=== PATIENT | male | born 1965 | race African-American/Black ===

== ENCOUNTER 2017-07-10 14:51 | Inpatient (IN) ==
[2017-07-10 16:00] LABS: Basophils # 0.1 10*3/uL (0.0-0.2); Basophils % 0.6 % (0.0-0.8); Eosinophils # 0.3 10*3/uL (0.0-0.87); Eosinophils % 2.5 % (0.00-10.9); Hematocrit 32.7 VOL% (42.0-52.0); Hemoglobin 11.7 GM/DL (14.0-18.0); Immature Granulocytes % 0.2 %; Immature Granulocytes Absolute 0.02 #; Lymphocytes # 4.7 10*3/uL (1.4-4.0); Lymphocytes % 45.3 % (21.2-54.2); Mean Corpuscular HGB Conc 35.8 GM/DL (32-36); Mean Corpuscular Hemoglobin 31 PG (27-34); Mean Platelet Volume 11.6 FL (9.6-12.0); Monocytes # 0.8 10*3/uL (0.11-0.8); Monocytes % 7.7 % (1.7-12.7); Neutrophils # 4.5 10*3/uL (1.4-7.4); Neutrophils % 43.7 % (38.7-73.9); Platelet Count 179 T/CUMM (130-400); Red Blood Count 3.76 MC/CUMM (3.8-5.5); White Blood Count 10.4 T/CUMM (4-12)
[2017-07-10 16:07] LABS: Apearance,Urine CLEAR (Clear); Bilirubin,Urine Negative (Negative); Blood, Urine Negative (Negative); Glucose,Urine (UA) Negative (Negative); Ketones,Urine Negative (Negative); Mucus,Urine Occasional /LPF (Occasional); Nitrite,Urine Negative (Negative); Protein,Urine Negative; RBC,Urine 1 /HPF (0-4); Urine Color Yellow (Yellow); Urine Specific Gravity 1.015 (1.001-1.035); Urine Urobilinogen < 2.0 EU/DL (0.2-1.0); WBC,Urine <1 /HPF (0-6)
[2017-07-10 16:10] LABS: Barbiturates Screen,Urine Negative (Negative); Benzodiazepines Screen,Urine Negative (Negative); Cannabinoid Screen,Urine Negative (Negative); Opiate Screen,Urine Positive (Negative); Phencyclidine Screen,Urine Negative (Negative)
[2017-07-10 16:17] LABS: Calcium 8.7 MG/DL (8.5-10.1); Osmolality,Calculated 274.5 MOS/KG (273-304); Potassium 3.6 MMOL/L (3.5-5.1)
[2017-07-10] MEDS ORDERED: ASPIRIN 325 MG TABLET PO STA (17:21)
[2017-07-10] MEDS ORDERED: NICOTINE 21 MG/24 HR PATCH TRANSDERM STA (17:21)
[2017-07-10] MEDS ORDERED: ASPIRIN 325 MG TABLET ONE (17:39)
[2017-07-10] MEDS ORDERED: LISINOPRIL 10 MG TABLET PO STA (19:31)
[2017-07-10] MEDS ORDERED: LISINOPRIL 10 MG TABLET ONE (19:33)
[2017-07-10] MEDS ORDERED: ONDANSETRON 4 MG/2 ML VIAL IV PRN (21:25)
[2017-07-10] MEDS: CARVEDILOL 6.25 MG TABLET PO SCH (23:43)
[2017-07-11 08:10] LABS: Risk Ratio 5.43; VLDL CHOLESTEROL 35.2 MG/DL
[2017-07-11] MEDS ORDERED: NITROGLYCERIN SL 0.4 MG TABLET SL PRN (08:45)
[2017-07-11] MEDS ORDERED: LISINOPRIL 20 MG TABLET PO SCH (09:00)
[2017-07-11] MEDS ORDERED: PANTOPRAZOLE 40 MG TABLET PO SCH (09:00)
[2017-07-11] MEDS ORDERED: ZALEPLON 5 MG CAPSULE PO PRN (09:01)
[2017-07-11] MEDS ORDERED: BISACODYL 5 MG TABLET PO PRN (09:01)
[2017-07-11] MEDS ORDERED: MAGNESIUM SULF RIDER 2 GM in PREMIX 1 EACH IV PRN ×2 (09:01→09:03)
[2017-07-11] MEDS ORDERED: ACETAMINOPHEN 325 MG TABLET PO PRN (09:01)
[2017-07-11] MEDS ORDERED: MAGNESIUM SULF RIDER 4 GM in PREMIX 1 EACH IV PRN (09:01)
[2017-07-11] MEDS ORDERED: diphenhydrAMINE CAP 25 MG CAPSULE PO ONE (09:03)
[2017-07-11] MEDS ORDERED: DIAZEPAM 5 MG TABLET PO ONE (09:03)
[2017-07-11] MEDS ORDERED: POTASSIUM CHLORIDE RIDER 10 MEQ in PREMIX 1 EACH IV PRN (09:03)
[2017-07-11] MEDS ORDERED: ENOXAPARIN 40 MG/0.4 ML SYRINGE SUBCUT SCH (09:30)
[2017-07-11] MEDS: ASPIRIN EC 81 MG TABLET PO SCH (09:31)
[2017-07-11] MEDS: PANTOPRAZOLE 40 MG TABLET PO SCH (09:31)
[2017-07-11] MEDS: CARVEDILOL 6.25 MG TABLET PO SCH ×2 (09:31→21:22)
[2017-07-11 10:01] LABS: PT Patient Result 10.8 SECS; Partial Thromboplastin Time 28.5 SECS (0-40)
[2017-07-11] MEDS: SODIUM CHLORIDE 0.9% 1,000 ML IV SCH ×2 (14:13→23:49)
[2017-07-11] MEDS ORDERED: LIDOCAINE 1% 20 ML VIAL ONE (14:17)
[2017-07-11] MEDS ORDERED: MIDAZOLAM 2 MG/2 ML VIAL ONE ×2 (14:21→14:36)
[2017-07-11] MEDS ORDERED: fentaNYL 100 MCG/2 ML VIAL ONE (14:21)
[2017-07-11] MEDS ORDERED: VERAPAMIL 5 MG/2 ML VIAL ONE (14:30)
[2017-07-11] MEDS ORDERED: NITROGLYCERIN DRIP 50 MG/250 ML BOTTLE IV ONE (14:30)
[2017-07-11] MEDS ORDERED: cloNIDine 0.1 MG TABLET PO PRN (15:06)
[2017-07-11] MEDS ORDERED: ATORVASTATIN 40 MG TABLET PO SCH (21:00)
[2017-07-12] MEDS: SODIUM CHLORIDE 0.9% 1,000 ML IV SCH (02:21)
[2017-07-12 06:17] LABS: Basophils % 0.5 % (0.0-0.8); Eosinophils # 0.2 10*3/uL (0.0-0.87); Eosinophils % 2.5 % (0.00-10.9); Hematocrit 35.3 VOL% (42.0-52.0); Hemoglobin 12.7 GM/DL (14.0-18.0); Immature Granulocytes % 0.7 %; Immature Granulocytes Absolute 0.06 #; Lymphocytes # 3.5 10*3/uL (1.4-4.0); Lymphocytes % 41.3 % (21.2-54.2); Mean Corpuscular Hemoglobin 31 PG (27-34); Mean Corpuscular Volume 84.9 FL (87-102); Mean Platelet Volume 11.9 FL (9.6-12.0); Monocytes # 0.7 10*3/uL (0.11-0.8); Monocytes % 8.1 % (1.7-12.7); Neutrophils % 46.9 % (38.7-73.9); Platelet Count 187 T/CUMM (130-400); Red Blood Count 4.16 MC/CUMM (3.8-5.5); White Blood Count 8.5 T/CUMM (4-12)
[2017-07-12 06:50] LABS: Calcium 8.7 MG/DL (8.5-10.1); Osmolality,Calculated 278.4 MOS/KG (273-304)
[2017-07-12 06:51] LABS: Calcium 8.4 MG/DL (8.5-10.1); Osmolality,Calculated 276.4 MOS/KG (273-304); Potassium 3.8 MMOL/L (3.5-5.1)
[2017-07-12] MEDS ORDERED: LISINOPRIL 20 MG TABLET PO SCH (09:00)
[2017-07-12] MEDS: CARVEDILOL 6.25 MG TABLET PO SCH (09:28)
[2017-07-12] MEDS: PANTOPRAZOLE 40 MG TABLET PO SCH (09:28)
[2017-07-12] MEDS: ASPIRIN EC 81 MG TABLET PO SCH (09:28)
[2017-07-12] MEDS ORDERED: ISOSORBIDE MONONITRATE 60 MG TABLET PO SCH (11:00)
[2017-07-12 12:10] VITALS: BP 180/93
[2017-07-13] MEDS ORDERED: METOPROLOL SUCCINATE XL 50 MG TABLET PO SCH (09:00)
== END 2017-07-12 13:44 | disposition home or self-care, planned readmission (81) | DRG 287 ==
LOC: N.ED 14:51 → N.EDINP 17:19 → N.TELEN 19:09
PROVIDERS: ADMIT Internal Medicine Interventional Cardiology; ATTEND Internal Medicine Interventional Cardiology
PROC: CLCCHCL (ICD-10-PCS; 2017-07-11 15:45)

== ENCOUNTER 2017-07-12 08:23 | Inpatient (IN) ==
[2017-07-17] MEDS ORDERED: SODIUM CHLORIDE 0.9% 1,000 ML IV PRN (10:21)
[2017-07-17 10:47] LABS: Basophils # 0.1 10*3/uL (0.0-0.2); Basophils % 0.8 % (0.0-0.8); Eosinophils # 0.1 10*3/uL (0.0-0.87); Eosinophils % 1.5 % (0.00-10.9); Hemoglobin 12.3 GM/DL (14.0-18.0); Immature Granulocytes % 0.1 %; Immature Granulocytes Absolute 0.01 #; Lymphocytes # 4.2 10*3/uL (1.4-4.0); Lymphocytes % 49.2 % (21.2-54.2); Mean Corpuscular HGB Conc 35.1 GM/DL (32-36); Mean Corpuscular Hemoglobin 30 PG (27-34); Mean Corpuscular Volume 86.6 FL (87-102); Mean Platelet Volume 11.2 FL (9.6-12.0); Monocytes # 0.7 10*3/uL (0.11-0.8); Monocytes % 8.3 % (1.7-12.7); Neutrophils # 3.4 10*3/uL (1.4-7.4); Neutrophils % 40.1 % (38.7-73.9); Platelet Count 191 T/CUMM (130-400); Red Blood Count 4.04 MC/CUMM (3.8-5.5); Red Cell Distribution Width 12.9 % (9.3-17.3); White Blood Count 8.5 T/CUMM (4-12)
[2017-07-17 10:53] LABS: PT Patient Result 10.8 SECS; Partial Thromboplastin Time 29.2 SECS (0-40)
[2017-07-17 11:08] LABS: Atypical Lymphocytes Few; Eosinophils 1 % (0-10); Giant Platelets Few; Hypochromasia 1+; Lymphocytes 41 % (20-55); Ovalocytes Slight; Platelet Estimate Adequate; Segmented Neutrophils 50 % (50-85); Total Cells Counted 100
[2017-07-17 11:16] LABS: Calcium 9.1 MG/DL (8.5-10.1); Osmolality,Calculated 274.7 MOS/KG (273-304); Potassium 4.2 MMOL/L (3.5-5.1)
[2017-07-17 12:03] LABS: Apearance,Urine CLEAR (Clear); Bilirubin,Urine Negative (Negative); Blood, Urine Negative (Negative); Glucose,Urine (UA) Negative (Negative); Ketones,Urine Negative (Negative); Mucus,Urine Occasional /LPF (Occasional); Nitrite,Urine Negative (Negative); Protein,Urine Negative; RBC,Urine <1 /HPF (0-4); Squamous Epithelial Cell,Urine Occasional /HPF (0-10); Urine Color Yellow (Yellow); WBC,Urine <1 /HPF (0-6)
[2017-07-18] MEDS ORDERED: TISSUE ADHESIVE 1 EACH APPLICATOR TOP ONE ×2 (05:18→21:53)
[2017-07-18] MEDS ORDERED: PAPAVERINE 60 MG/2 ML VIAL ONE (05:18)
[2017-07-18] MEDS ORDERED: VANCOMYCIN 1,000 MG VIAL ONE ×2 (05:19→21:53)
[2017-07-18] MEDS ORDERED: FAMOTIDINE 20 MG TABLET ONE (05:43)
[2017-07-18] MEDS ORDERED: DIAZEPAM 5 MG TABLET ONE (05:43)
[2017-07-18] MEDS ORDERED: DIAZEPAM 5 MG TABLET PO ONE (06:00)
[2017-07-18] MEDS ORDERED: FAMOTIDINE 20 MG TABLET PO ONE (06:00)
[2017-07-18] MEDS ORDERED: TRANEXAMIC ACID 1,000 MG/10 ML VIAL IV ONE (06:02)
[2017-07-18] MEDS: LACTATED RINGERS 1,000 ML IV SCH (06:15)
[2017-07-18] MEDS ORDERED: CEFUROXIME 1,500 MG VIAL ONE (06:50)
[2017-07-18 07:27] LABS: ABG Base Excess 2.2 MMOL/L (-2.5-2.5); ABG HCO3 26.3 MMOL/L (20-26); ABG Oxygen Saturation 99.2 % (95-100); ABG PCO2 38.8 MM HG (35-48); ABG PH 7.449 (7.35-7.45); ABG PO2 336.3 MM HG (80-95); ABG TCO2 27.5 MMOL/L (23-27); Glucose Heart Surgery 100 MG/DL (74-106); Hemoglobin Heart Surgery 11.2 G/DL (14.0-18.0); Ionized Calcium Arterial 1.09 MMOL/L (1.21-1.46); PCO2 Patient Temp Arterial 38.8 MMHG; PH Patient Temp Arterial 7.449; PO2 Patient Temp Arterial 336.3 MM HG; Patient Temperature 37 CELCIUS; Potassium Heart/CVR 3.4 MMOL/L (3.5-5.1); Sodium Heart/CVR 136 MMOL/L (135-145)
[2017-07-18 07:49] LABS: Apearance,Urine CLEAR (Clear); Bilirubin,Urine Negative (Negative); Blood, Urine Small mg/dL (Negative); Glucose,Urine (UA) Negative (Negative); Ketones,Urine Negative (Negative); Nitrite,Urine Negative (Negative); Protein,Urine Negative; RBC,Urine 1 /HPF (0-4); Urine Color Straw (Yellow); Urine Specific Gravity 1.002 (1.001-1.035); Urine Urobilinogen < 2.0 EU/DL (0.2-1.0); WBC,Urine <1 /HPF (0-6)
[2017-07-18] MEDS ORDERED: CALCIUM CHLORIDE 1,000 MG/10 ML SYRINGE IV ONE (08:05)
[2017-07-18] MEDS ORDERED: PHENYLEPHRINE DRIP 40 MG/250 ML PREMIX IV ONE (08:05)
[2017-07-18] MEDS ORDERED: POTASSIUM CHLORIDE RIDER 100 ML IV ONE (08:05)
[2017-07-18] MEDS ORDERED: SODIUM BICARBONATE 50 MEQ/50 ML SYRINGE IV ONE ×2 (08:07→11:04)
[2017-07-18] MEDS ORDERED: NITROGLYCERIN DRIP 50 MG/250 ML BOTTLE IV ONE ×2 (08:08→09:00)
[2017-07-18] MEDS ORDERED: ALBUMIN 5% 12.5 GM/250 ML VIAL IV ONE ×2 (08:08→23:10)
[2017-07-18] MEDS ORDERED: HEPARIN/NACL 0.9% 2 UNITS/ML 500 ML IV ONE (09:00)
[2017-07-18] MEDS ORDERED: VECURONIUM 10 MG VIAL IV ONE (09:00)
[2017-07-18] MEDS ORDERED: ETOMIDATE 40 MG/20 ML VIAL IV ONE (09:00)
[2017-07-18] MEDS ORDERED: PHENYLEPHRINE DRIP 20 MG/250 ML PREMIX IV ONE (09:00)
[2017-07-18 09:07] LABS: Hematocrit Heart Surgery 20.8 PERCENT (42-52); Hemoglobin Heart Surgery 6.6 G/DL (14.0-18.0); PCO2 Patient Temp Venous 37.2 MM HG; PH Patient Temp Venous 7.461; PO2 Patient Temp Venous 39.4 MM HG; Potassium Heart/CVR 4.5 MMOL/L (3.5-5.1); VBG Base Excess 2.9 MEQ/L (0-4); VBG HCO3 26.9 MEQ/L (24-28); VBG Oxygen Saturation 84.7 %; VBG PCO2 43.1 MMHG (41-51); VBG PH 7.417; VBG PO2 48.3 MMHG (17-40)
[2017-07-18 09:41] LABS: Hematocrit Heart Surgery 22.3 PERCENT (42-52); Hemoglobin Heart Surgery 7.1 G/DL (14.0-18.0); PCO2 Patient Temp Venous 30.2 MM HG; PH Patient Temp Venous 7.527; PO2 Patient Temp Venous 44.7 MM HG; Potassium Heart/CVR 4.4 MMOL/L (3.5-5.1); VBG Base Excess 2.7 MEQ/L (0-4); VBG HCO3 26.7 MEQ/L (24-28); VBG Oxygen Saturation 91.3 %; VBG PH 7.482; VBG PO2 54.5 MMHG (17-40)
[2017-07-18 10:08] LABS: Hematocrit Heart Surgery 20.2 PERCENT (42-52); Hemoglobin Heart Surgery 6.4 G/DL (14.0-18.0); PCO2 Patient Temp Venous 35.5 MM HG; PH Patient Temp Venous 7.494; PO2 Patient Temp Venous 39.8 MM HG; Potassium Heart/CVR 4.9 MMOL/L (3.5-5.1); VBG Base Excess 3.9 MEQ/L (0-4); VBG HCO3 27.7 MEQ/L (24-28); VBG Oxygen Saturation 79.1 %; VBG PCO2 35.5 MMHG (41-51); VBG PH 7.494; VBG PO2 39.8 MMHG (17-40)
[2017-07-18 10:37] LABS: Hematocrit Heart Surgery 23.6 PERCENT (42-52); Hemoglobin Heart Surgery 7.6 G/DL (14.0-18.0); PCO2 Patient Temp Venous 42.2 MM HG; PH Patient Temp Venous 7.404; PO2 Patient Temp Venous 42.1 MM HG; Potassium Heart/CVR 4.5 MMOL/L (3.5-5.1); VBG Base Excess 1.5 MEQ/L (0-4); VBG HCO3 25.5 MEQ/L (24-28); VBG Oxygen Saturation 78.5 %; VBG PCO2 42.2 MMHG (41-51); VBG PH 7.404; VBG PO2 42.1 MMHG (17-40)
[2017-07-18 10:59] LABS: ABG Base Excess -1.1 MMOL/L (-2.5-2.5); ABG HCO3 23.5 MMOL/L (20-26); ABG Oxygen Saturation 97.7 % (95-100); ABG PCO2 49.4 MM HG (35-48); ABG PH 7.319 (7.35-7.45); ABG TCO2 23.5 MMOL/L (23-27); Glucose Heart Surgery 315 MG/DL (74-106); Ionized Calcium Arterial 1.25 MMOL/L (1.21-1.46); PCO2 Patient Temp Arterial 49.4 MMHG; PH Patient Temp Arterial 7.319; Patient Temperature 37 CELCIUS; Potassium Heart/CVR 3.9 MMOL/L (3.5-5.1); Sodium Heart/CVR 129 MMOL/L (135-145)
[2017-07-18] MEDS ORDERED: DEXTROSE 5% KCL 20 MEQ 40 MEQ/2,000 ML BAG IV ONE (11:03)
[2017-07-18] MEDS ORDERED: MAGNESIUM SULFATE 1 GM/2 ML VIAL ONE (11:04)
[2017-07-18] MEDS ORDERED: ALBUMIN 25% 25 GM/100 ML VIAL IV ONE (11:04)
[2017-07-18] MEDS ORDERED: methylPREDNISolone SOD SUC 1,000 MG/8 ML VIAL ONE (11:05)
[2017-07-18] MEDS ORDERED: MANNITOL 12.5 GM/50 ML VIAL IV ONE (11:05)
[2017-07-18] MEDS ORDERED: FUROSEMIDE 20 MG/2 ML VIAL ONE (11:05)
[2017-07-18] MEDS ORDERED: HEPARIN 10,000 UNIT/10 ML VIAL ONE (11:05)
[2017-07-18] MEDS ORDERED: PROTAMINE SULFATE 250 MG/25 ML VIAL IV ONE (11:07)
[2017-07-18] MEDS ORDERED: PROTAMINE SULFATE 50 MG/5 ML VIAL IV ONE (11:07)
[2017-07-18] MEDS ORDERED: CALCIUM CHLORIDE 1,000 MG/10 ML SYRINGE IV PRN (11:34)
[2017-07-18] MEDS ORDERED: INSULIN REGULAR 100 UNIT/ML IV PRN (11:34)
[2017-07-18] MEDS ORDERED: DEXTROSE 50% 25 GM/50 ML VIAL IV PRN ×2 (11:34)
[2017-07-18] MEDS ORDERED: CHLORHEXIDINE 4% SOLN 118 ML BOTTLE TOP PRN (11:34)
[2017-07-18] MEDS ORDERED: SODIUM CHLORIDE 0.9% 250 ML IV PRN (11:34)
[2017-07-18] MEDS ORDERED: ACETAMINOPHEN 650 MG SUPP RECTAL PRN (11:34)
[2017-07-18] MEDS ORDERED: ONDANSETRON 4 MG/2 ML VIAL IV PRN (11:34)
[2017-07-18] MEDS ORDERED: POTASSIUM CHLORIDE RIDER 10 MEQ in PREMIX 1 EACH IV PRN (11:34)
[2017-07-18] MEDS ORDERED: MAGNESIUM SULF RIDER 4 GM in PREMIX 1 EACH IV PRN (11:34)
[2017-07-18 11:54] LABS: Basophils % 0.1 % (0.0-0.8); Eosinophils % 0.1 % (0.00-10.9); Hematocrit 28.9 VOL% (42.0-52.0); Hemoglobin 10.8 GM/DL (14.0-18.0); Immature Granulocytes % 0.6 %; Immature Granulocytes Absolute 0.14 #; Lymphocytes % 8.9 % (21.2-54.2); Mean Corpuscular HGB Conc 37.4 GM/DL (32-36); Mean Corpuscular Hemoglobin 32 PG (27-34); Mean Corpuscular Volume 85.3 FL (87-102); Mean Platelet Volume 11.6 FL (9.6-12.0); Monocytes # 0.5 10*3/uL (0.11-0.8); Monocytes % 2.3 % (1.7-12.7); Neutrophils # 19.2 10*3/uL (1.4-7.4); Platelet Count 144 T/CUMM (130-400); Red Blood Count 3.39 MC/CUMM (3.8-5.5); Red Cell Distribution Width 13.2 % (9.3-17.3); White Blood Count 21.9 T/CUMM (4-12)
[2017-07-18 11:56] LABS: ABG Base Excess 1.5 MMOL/L (-2.5-2.5); ABG HCO3 25.8 MMOL/L (20-26); ABG Oxygen Saturation 98.5 % (95-100); ABG PH 7.365 (7.35-7.45); ABG TCO2 24.8 MMOL/L (23-27); Glucose Heart Surgery 152 MG/DL (74-106); Hematocrit Heart Surgery 33.2 PERCENT (42-52); Hemoglobin Heart Surgery 10.8 G/DL (14.0-18.0); Potassium Heart/CVR 3.3 MMOL/L (3.5-5.1)
[2017-07-18 12:03] LABS: INR 1.1; Partial Thromboplastin Time 28.3 SECS (0-40)
[2017-07-18] MEDS: INSULIN REGULAR DRIP 100 ML IV SCH (12:07)
[2017-07-18] MEDS: SODIUM CHLORIDE 0.45% 1,000 ML IV SCH ×2 (12:08)
[2017-07-18] MEDS ORDERED: LACTATED RINGERS 1,000 ML IV ONE ×2 (12:15→21:03)
[2017-07-18] MEDS ORDERED: SODIUM CHLORIDE 0.9% 1,000 ML IV ONE ×2 (12:15→20:08)
[2017-07-18] MEDS ORDERED: MINERAL OIL/PETROLATUM OPH OINT 3.5 GM TUBE ONE (12:15)
[2017-07-18] MEDS ORDERED: SEVOFLURANE 1 UNIT/15 MINUTE INH ONE (12:15)
[2017-07-18] MEDS ORDERED: MIDAZOLAM 10 MG/2 ML VIAL ONE (12:15)
[2017-07-18] MEDS: MIDAZOLAM 2 MG/2 ML VIAL IV PRN (12:15)
[2017-07-18] MEDS ORDERED: SODIUM CHLORIDE 0.9% 100 ML IV ONE (12:16)
[2017-07-18] MEDS ORDERED: SODIUM CHLORIDE 0.9% 250 ML IV ONE (12:16)
[2017-07-18] MEDS: POTASSIUM CHLORIDE RIDER 20 MEQ in PREMIX 1 EACH IV PRN ×3 (12:25→17:21)
[2017-07-18 12:31] LABS: Blood Urea Nitrogen 8 MG/DL (7-18); Calcium 8.3 MG/DL (8.5-10.1); Glucose 143 MG/DL (74-106); Osmolality,Calculated 272.8 MOS/KG (273-304); Potassium 3.5 MMOL/L (3.5-5.1); Sodium 137 MMOL/L (136-145)
[2017-07-18 12:44] LABS: Hematocrit Heart Surgery 35.4 PERCENT (42-52); Hemoglobin Heart Surgery 11.5 G/DL (14.0-18.0); PCO2 Patient Temp Venous 52.5 MM HG; PH Patient Temp Venous 7.353; PO2 Patient Temp Venous 39.5 MM HG; Potassium Heart/CVR 3.2 MMOL/L (3.5-5.1); VBG Base Excess 2.6 MEQ/L (0-4); VBG HCO3 26.2 MEQ/L (24-28); VBG Oxygen Saturation 69.5 %; VBG PCO2 52.5 MMHG (41-51); VBG PH 7.353; VBG PO2 39.5 MMHG (17-40)
[2017-07-18] MEDS: MORPHINE 10 MG/1 ML VIAL IV PRN ×2 (12:45→14:58)
[2017-07-18] MEDS: ALBUMIN 5% 12.5 GM in PREMIX 1 EACH IV PRN ×3 (13:04→16:31)
[2017-07-18 13:09] LABS: Band Neutrophils 4 % (0-10); Hypochromasia 2+; Lymphocytes 11 % (20-55); Microcytosis 1+; Platelet Estimate Adequate; Segmented Neutrophils 84 % (50-85); Total Cells Counted 100
[2017-07-18] MEDS: NITROGLYCERIN DRIP 50 MG/250 ML BOTTLE IV SCH (15:07)
[2017-07-18] MEDS ORDERED: KETOROLAC 30 MG/1 ML VIAL IV ONE (15:13)
[2017-07-18 15:17] LABS: ABG Base Excess 0.5 MMOL/L (-2.5-2.5); ABG HCO3 24.9 MMOL/L (20-26); ABG Oxygen Saturation 97.8 % (95-100); ABG PH 7.392 (7.35-7.45); ABG PO2 98.2 MM HG (80-95); ABG TCO2 23.3 MMOL/L (23-27); Glucose Heart Surgery 137 MG/DL (74-106); Potassium Heart/CVR 3.5 MMOL/L (3.5-5.1)
[2017-07-18] MEDS ORDERED: METOPROLOL TARTRATE 5 MG/5 ML VIAL IV ONE ×2 (15:37→15:47)
[2017-07-18 16:14] LABS: Hematocrit Heart Surgery 30.8 PERCENT (42-52); PCO2 Patient Temp Venous 52.7 MM HG; PH Patient Temp Venous 7.328; PO2 Patient Temp Venous 28.4 MM HG; Potassium Heart/CVR 3.8 MMOL/L (3.5-5.1); VBG HCO3 24.4 MEQ/L (24-28); VBG Oxygen Saturation 44.6 %; VBG PCO2 52.7 MMHG (41-51); VBG PH 7.328; VBG PO2 28.4 MMHG (17-40)
[2017-07-18 17:04] LABS: Lactic Acid 2.1 MMOL/L (0.4-2.0)
[2017-07-18] MEDS ORDERED: ESMOLOL 100 MG/10 ML VIAL IV ONE ×2 (17:27→17:49)
[2017-07-18] MEDS: MILRINONE 20 MG/100 ML PREMIX IV SCH (17:31)
[2017-07-18 17:57] LABS: ABG Base Excess -1.9 MMOL/L (-2.5-2.5); ABG Oxygen Saturation 97.5 % (95-100); ABG PCO2 33.9 MM HG (35-48); ABG PO2 112.9 MM HG (80-95); Glucose Heart Surgery 158 MG/DL (74-106); Hemoglobin Heart Surgery 8.6 G/DL (14.0-18.0); Potassium Heart/CVR 4.4 MMOL/L (3.5-5.1)
[2017-07-18 18:13] LABS: VBG Base Excess -1.6 MEQ/L (0-4); VBG HCO3 22.2 MEQ/L (24-28); VBG PCO2 49.7 MMHG (41-51); VBG PH 7.308; VBG PO2 24.1 MMHG (17-40)
[2017-07-18 18:48] LABS: VBG Base Excess -1.8 MEQ/L (0-4); VBG HCO3 23.9 MEQ/L (24-28); VBG Oxygen Saturation 33.2 %; VBG PCO2 45.6 MMHG (41-51); VBG PH 7.338; VBG PO2 27.7 MMHG (17-40)
[2017-07-18] MEDS ORDERED: DOBUTamine 500 MG/250 ML PREMIX IV ONE (18:56)
[2017-07-18 19:02] LABS: ABG Base Excess -2.6 MMOL/L (-2.5-2.5); ABG Oxygen Saturation 97.9 % (95-100); ABG PCO2 31.6 MM HG (35-48); ABG PH 7.441 (7.35-7.45); ABG PO2 121.3 MM HG (80-95); Glucose Heart Surgery 185 MG/DL (74-106); Hemoglobin Heart Surgery 8.5 G/DL (14.0-18.0); Potassium Heart/CVR 4.9 MMOL/L (3.5-5.1)
[2017-07-18] MEDS ORDERED: EPINEPHrine 1 MG/10 ML SYRINGE ONE (19:08)
[2017-07-18] MEDS ORDERED: EPINEPHrine 1 MG/ML VIAL ONE (19:11)
[2017-07-18] MEDS: DOBUTamine 500 MG/250 ML PREMIX IV SCH (20:10)
[2017-07-18] MEDS: MORPHINE 2 MG/1 ML SYRINGE IV PRN (20:29)
[2017-07-18 20:40] LABS: ABG Base Excess -6.3 MMOL/L (-2.5-2.5); ABG HCO3 17.8 MMOL/L (20-26); ABG Oxygen Saturation 97.4 % (95-100); ABG PCO2 30.4 MM HG (35-48); ABG PH 7.385 (7.35-7.45); ABG PO2 111.1 MM HG (80-95); ABG TCO2 18.7 MMOL/L (23-27); Basophils % 0.1 % (0.0-0.8); Glucose Heart Surgery 211 MG/DL (74-106); Hematocrit 25.7 VOL% (42.0-52.0); Hemoglobin Heart Surgery 9.9 G/DL (14.0-18.0); Immature Granulocytes % 0.7 %; Immature Granulocytes Absolute 0.11 #; Lymphocytes # 1.1 10*3/uL (1.4-4.0); Lymphocytes % 6.9 % (21.2-54.2); Mean Corpuscular Hemoglobin 31 PG (27-34); Mean Corpuscular Volume 87.1 FL (87-102); Mean Platelet Volume 11.6 FL (9.6-12.0); Monocytes # 0.4 10*3/uL (0.11-0.8); Monocytes % 2.7 % (1.7-12.7); Neutrophils % 89.6 % (38.7-73.9); Platelet Count 104 T/CUMM (130-400); Potassium Heart/CVR 4.4 MMOL/L (3.5-5.1); Red Blood Count 2.95 MC/CUMM (3.8-5.5); Red Cell Distribution Width 13.6 % (9.3-17.3); White Blood Count 15.6 T/CUMM (4-12)
[2017-07-18 21:00] LABS: Blood Urea Nitrogen 14 MG/DL (7-18); Calcium 6.4 MG/DL (8.5-10.1); Glucose 214 MG/DL (74-106); Osmolality,Calculated 283.5 MOS/KG (273-304); Potassium 4.6 MMOL/L (3.5-5.1); Sodium 139 MMOL/L (136-145)
[2017-07-18 22:09] LABS: ABG HCO3 17.9 MMOL/L (20-26); ABG PCO2 29.9 MM HG (35-48); ABG PH 7.354 (7.35-7.45); ABG TCO2 15.6 MMOL/L (23-27); Glucose Heart Surgery 219 MG/DL (74-106); Hematocrit Heart Surgery 25.1 PERCENT (42-52); Hemoglobin Heart Surgery 8.1 G/DL (14.0-18.0); Ionized Calcium Arterial 0.96 MMOL/L (1.21-1.46); PCO2 Patient Temp Arterial 29.9 MMHG; PH Patient Temp Arterial 7.354; Patient Temperature 37 CELCIUS; Potassium Heart/CVR 4.9 MMOL/L (3.5-5.1); Sodium Heart/CVR 134 MMOL/L (135-145)
[2017-07-18 22:59] LABS: ABG Base Excess -7.6 MMOL/L (-2.5-2.5); ABG HCO3 18.2 MMOL/L (20-26); ABG Oxygen Saturation 99.5 % (95-100); ABG PCO2 42.2 MM HG (35-48); ABG PH 7.261 (7.35-7.45); ABG TCO2 17.9 MMOL/L (23-27); Glucose Heart Surgery 223 MG/DL (74-106); Hemoglobin Heart Surgery 8.4 G/DL (14.0-18.0); Ionized Calcium Arterial 1.14 MMOL/L (1.21-1.46); PCO2 Patient Temp Arterial 42.2 MMHG; PH Patient Temp Arterial 7.261; Patient Temperature 37 CELCIUS; Potassium Heart/CVR 5.3 MMOL/L (3.5-5.1); Sodium Heart/CVR 135 MMOL/L (135-145)
[2017-07-18] MEDS: CHLORHEXIDINE 0.12% ORAL RINSE 60 ML BOTTLE SWISH/SPIT SCH (23:10)
[2017-07-18] MEDS ORDERED: MIDAZOLAM 2 MG/2 ML VIAL ONE (23:50)
[2017-07-18] MEDS ORDERED: fentaNYL 100 MCG/2 ML VIAL ONE (23:50)
[2017-07-19] MEDS: MORPHINE 2 MG/1 ML SYRINGE IV PRN ×3 (00:06→23:45)
[2017-07-19] MEDS: MIDAZOLAM 2 MG/2 ML VIAL IV PRN (00:06)
[2017-07-19] MEDS ORDERED: NITROPRUSSIDE 50 MG/2 ML VIAL ONE (00:29)
[2017-07-19] MEDS ORDERED: CALCIUM CHLORIDE 1,000 MG/10 ML VIAL IV ONE (00:32)
[2017-07-19] MEDS ORDERED: ROCURONIUM 100 MG/10 ML VIAL IV ONE (00:32)
[2017-07-19] MEDS ORDERED: SODIUM BICARBONATE 50 MEQ/50 ML SYRINGE IV ONE (00:32)
[2017-07-19] MEDS ORDERED: SUCCINYLCHOLINE 200 MG/10 ML VIAL ONE (00:32)
[2017-07-19] MEDS ORDERED: ETOMIDATE 40 MG/20 ML VIAL IV ONE (00:33)
[2017-07-19] MEDS ORDERED: PHENYLEPHRINE DRIP 20 MG/250 ML PREMIX IV ONE (00:33)
[2017-07-19] MEDS: NITROPRUSSIDE 100 MG in DEXTROSE 5% 250 ML IV SCH ×2 (00:35→23:45)
[2017-07-19] MEDS ORDERED: LABETALOL 20 MG/4 ML SYRINGE IV ONE ×2 (00:57→01:10)
[2017-07-19] MEDS: LABETALOL INJ 200 MG in SODIUM CHLORIDE 0.9% 160 ML IV SCH ×2 (01:13→07:04)
[2017-07-19] MEDS: SODIUM CHLORIDE 0.45% 1,000 ML IV SCH ×3 (02:32→17:46)
[2017-07-19] MEDS: CEFUROXIME INJ 1,500 MG in SYRINGE 1 EACH IV SCH ×2 (02:33→13:58)
[2017-07-19 03:01] LABS: VBG Base Excess -2.6 MEQ/L (0-4); VBG HCO3 22.2 MEQ/L (24-28); VBG Oxygen Saturation 95.3 %; VBG PH 7.399; VBG PO2 69.7 MMHG (17-40)
[2017-07-19 03:03] LABS: VBG Base Excess -3.7 MEQ/L (0-4); VBG HCO3 19.1 MEQ/L (24-28); VBG Oxygen Saturation 97.8 %; VBG PCO2 27.6 MMHG (41-51); VBG PH 7.459
[2017-07-19 03:08] LABS: ABG Base Excess -3.5 MMOL/L (-2.5-2.5); ABG PCO2 35.4 MM HG (35-48); ABG PH 7.391 (7.35-7.45); ABG PO2 119.8 MM HG (80-95); ABG TCO2 22.1 MMOL/L (23-27)
[2017-07-19 03:09] LABS: ABG Oxygen Saturation 97.7 % (95-100); Glucose Heart Surgery 193 MG/DL (74-106); Potassium Heart/CVR 4.6 MMOL/L (3.5-5.1)
[2017-07-19 03:10] LABS: Hemoglobin Heart Surgery 9.4 G/DL (14.0-18.0)
[2017-07-19 05:04] LABS: Basophils % 0.1 % (0.0-0.8); Hematocrit 23.4 VOL% (42.0-52.0); Hemoglobin 8.4 GM/DL (14.0-18.0); Immature Granulocytes % 0.6 %; Immature Granulocytes Absolute 0.07 #; Lymphocytes # 1.9 10*3/uL (1.4-4.0); Lymphocytes % 15.2 % (21.2-54.2); Mean Corpuscular HGB Conc 35.9 GM/DL (32-36); Mean Corpuscular Hemoglobin 31 PG (27-34); Mean Corpuscular Volume 85.1 FL (87-102); Mean Platelet Volume 12.1 FL (9.6-12.0); Monocytes % 7.9 % (1.7-12.7); Neutrophils # 9.6 10*3/uL (1.4-7.4); Neutrophils % 76.2 % (38.7-73.9); Platelet Count 73 T/CUMM (130-400); Red Blood Count 2.75 MC/CUMM (3.8-5.5); Red Cell Distribution Width 13.8 % (9.3-17.3); White Blood Count 12.6 T/CUMM (4-12)
[2017-07-19 05:24] LABS: Calcium 7.8 MG/DL (8.5-10.1); Osmolality,Calculated 278.5 MOS/KG (273-304); Potassium 4.5 MMOL/L (3.5-5.1)
[2017-07-19 05:27] LABS: Lactic Acid 2.4 MMOL/L (0.4-2.0)
[2017-07-19 05:32] LABS: Band Neutrophils 3 % (0-10); Lymphocytes 15 % (20-55); Metamyelocytes 1 %; Segmented Neutrophils 78 % (50-85); Total Cells Counted 100
[2017-07-19 05:33] LABS: Microcytosis 1+; Platelet Estimate Decreased; Target Cells Slight
[2017-07-19 06:12] LABS: ABG Base Excess 2.2 MMOL/L (-2.5-2.5); ABG HCO3 26.3 MMOL/L (20-26); ABG Oxygen Saturation 94.9 % (95-100); ABG PCO2 32.9 MM HG (35-48); ABG PH 7.493 (7.35-7.45); ABG PO2 66.9 MM HG (80-95); ABG TCO2 23.3 MMOL/L (23-27); Glucose Heart Surgery 134 MG/DL (74-106); Hematocrit Heart Surgery 27.1 PERCENT (42-52); Hemoglobin Heart Surgery 8.7 G/DL (14.0-18.0); Potassium Heart/CVR 4.2 MMOL/L (3.5-5.1)
[2017-07-19] MEDS ORDERED: SODIUM CHLORIDE 0.9% 1,000 ML IV PRN (06:44)
[2017-07-19] MEDS ORDERED: FUROSEMIDE 40 MG/4 ML VIAL IV ONE ×2 (06:48→20:15)
[2017-07-19 07:40] LABS: ABG Base Excess 2.7 MMOL/L (-2.5-2.5); ABG HCO3 26.8 MMOL/L (20-26); ABG Oxygen Saturation 97.3 % (95-100); ABG PCO2 33.4 MM HG (35-48); ABG PH 7.495 (7.35-7.45); ABG PO2 81.6 MM HG (80-95); ABG TCO2 23.6 MMOL/L (23-27); Glucose Heart Surgery 132 MG/DL (74-106); Hematocrit Heart Surgery 28.4 PERCENT (42-52); Hemoglobin Heart Surgery 9.2 G/DL (14.0-18.0); Potassium Heart/CVR 4.2 MMOL/L (3.5-5.1)
[2017-07-19] MEDS: MORPHINE 10 MG/1 ML VIAL IV PRN ×3 (09:00→14:10)
[2017-07-19] MEDS: FUROSEMIDE 40 MG TABLET PO SCH (09:19)
[2017-07-19] MEDS: MAGNESIUM SULF RIDER 2 GM in PREMIX 1 EACH IV PRN ×2 (09:33→11:35)
[2017-07-19] MEDS: ASPIRIN EC 325 MG TABLET PO SCH (09:35)
[2017-07-19] MEDS: CHLORHEXIDINE 0.12% ORAL RINSE 60 ML BOTTLE SWISH/SPIT SCH ×2 (09:36→20:32)
[2017-07-19] MEDS: CARVEDILOL 3.125 MG TABLET PO SCH ×2 (13:00→20:17)
[2017-07-19 13:58] LABS: Hematocrit Heart Surgery 34.7 PERCENT (42-52); Hemoglobin Heart Surgery 11.2 G/DL (14.0-18.0); PCO2 Patient Temp Venous 42.1 MM HG; PH Patient Temp Venous 7.417; PO2 Patient Temp Venous 27.8 MM HG; Potassium Heart/CVR 4.2 MMOL/L (3.5-5.1); VBG Base Excess 2.4 MEQ/L (0-4); VBG HCO3 25.7 MEQ/L (24-28); VBG PCO2 42.1 MMHG (41-51); VBG PH 7.417; VBG PO2 27.8 MMHG (17-40)
[2017-07-19] MEDS: NITROGLYCERIN DRIP 50 MG/250 ML BOTTLE IV SCH (17:31)
[2017-07-19] MEDS: MILRINONE 20 MG/100 ML PREMIX IV SCH (17:32)
[2017-07-19] MEDS: LACTATED RINGERS 1,000 ML IV SCH (17:36)
[2017-07-19] MEDS: INSULIN REGULAR DRIP 100 ML IV SCH (17:36)
[2017-07-19] MEDS ORDERED: ALBUMIN 5% 25 GM in PREMIX 1 EACH IV ONE (19:36)
[2017-07-19 19:56] LABS: ABG Base Excess 1.8 MMOL/L (-2.5-2.5); ABG Oxygen Saturation 95.2 % (95-100); ABG PCO2 36.3 MM HG (35-48); ABG PH 7.455 (7.35-7.45); ABG PO2 72.7 MM HG (80-95); ABG TCO2 22.8 MMOL/L (23-27)
[2017-07-19 20:00] LABS: Basophils % 0.1 % (0.0-0.8); Hemoglobin 11.1 GM/DL (14.0-18.0); Immature Granulocytes % 0.4 %; Immature Granulocytes Absolute 0.08 #; Lymphocytes # 3.9 10*3/uL (1.4-4.0); Lymphocytes % 17.2 % (21.2-54.2); Mean Corpuscular HGB Conc 35.6 GM/DL (32-36); Mean Corpuscular Hemoglobin 30 PG (27-34); Mean Corpuscular Volume 85.2 FL (87-102); Monocytes # 1.7 10*3/uL (0.11-0.8); Monocytes % 7.6 % (1.7-12.7); NRBC # 0.02 10*3/uL; Neutrophils # 16.8 10*3/uL (1.4-7.4); Neutrophils % 74.7 % (38.7-73.9); Red Blood Count 3.66 MC/CUMM (3.8-5.5); Red Cell Distribution Width 14.1 % (9.3-17.3); White Blood Count 22.5 T/CUMM (4-12)
[2017-07-19 20:04] LABS: Hematocrit 31.2 VOL% (42.0-52.0); Platelet Count 79 T/CUMM (130-400)
[2017-07-19] MEDS: DOBUTamine 500 MG/250 ML PREMIX IV SCH (20:17)
[2017-07-19 20:21] LABS: Calcium 8.4 MG/DL (8.5-10.1); Potassium 4.9 MMOL/L (3.5-5.1)
[2017-07-19] MEDS: ATORVASTATIN 40 MG TABLET PO SCH (20:26)
[2017-07-19 21:12] LABS: Total Cells Counted 100
[2017-07-19 21:13] LABS: Lymphocytes 19 % (20-55); Ovalocytes 1+; Platelet Estimate Decreased; Polychromasia Few; Segmented Neutrophils 70 % (50-85); Target Cells 2+
[2017-07-20] MEDS: LABETALOL INJ 200 MG in SODIUM CHLORIDE 0.9% 160 ML IV SCH (00:26)
[2017-07-20] MEDS: CEFUROXIME INJ 1,500 MG in SYRINGE 1 EACH IV SCH (01:18)
[2017-07-20] MEDS: MORPHINE 2 MG/1 ML SYRINGE IV PRN ×3 (03:40→08:13)
[2017-07-20 04:24] LABS: Hematocrit 29.9 VOL% (42.0-52.0); Hemoglobin 10.6 GM/DL (14.0-18.0); Immature Granulocytes % 0.5 %; Immature Granulocytes Absolute 0.11 #; Lymphocytes # 3.6 10*3/uL (1.4-4.0); Lymphocytes % 16.4 % (21.2-54.2); Mean Corpuscular HGB Conc 35.5 GM/DL (32-36); Mean Corpuscular Hemoglobin 31 PG (27-34); Mean Corpuscular Volume 86.4 FL (87-102); Mean Platelet Volume 12.5 FL (9.6-12.0); Monocytes # 1.6 10*3/uL (0.11-0.8); Monocytes % 7.4 % (1.7-12.7); Neutrophils # 16.4 10*3/uL (1.4-7.4); Neutrophils % 75.7 % (38.7-73.9); Red Blood Count 3.46 MC/CUMM (3.8-5.5); Red Cell Distribution Width 14.2 % (9.3-17.3); White Blood Count 21.7 T/CUMM (4-12)
[2017-07-20 04:28] LABS: Platelet Count 78 T/CUMM (130-400)
[2017-07-20 04:39] LABS: Calcium 8.3 MG/DL (8.5-10.1); Osmolality,Calculated 276.8 MOS/KG (273-304); Potassium 4.1 MMOL/L (3.5-5.1)
[2017-07-20] MEDS: SODIUM CHLORIDE 0.45% 1,000 ML IV SCH ×2 (04:48→16:33)
[2017-07-20 04:54] LABS: Band Neutrophils 2 % (0-10); Giant Platelets Few; Hypochromasia 1+; Lymphocytes 16 % (20-55); Ovalocytes Slight; Platelet Estimate Decreased; Segmented Neutrophils 77 % (50-85); Total Cells Counted 100
[2017-07-20 04:55] LABS: Microcytosis Slight
[2017-07-20] MEDS: MAGNESIUM SULF RIDER 2 GM in PREMIX 1 EACH IV PRN (05:02)
[2017-07-20] MEDS: ASPIRIN EC 325 MG TABLET PO SCH (08:17)
[2017-07-20] MEDS: CARVEDILOL 3.125 MG TABLET PO SCH ×2 (08:17→20:02)
[2017-07-20] MEDS: FUROSEMIDE 40 MG TABLET PO SCH (08:17)
[2017-07-20] MEDS: CHLORHEXIDINE 0.12% ORAL RINSE 60 ML BOTTLE SWISH/SPIT SCH ×2 (08:18→20:21)
[2017-07-20] MEDS: amLODIPine 5 MG TABLET PO SCH (10:44)
[2017-07-20] MEDS: LOSARTAN 25 MG TABLET PO SCH ×2 (11:35→20:02)
[2017-07-20] MEDS: MORPHINE 10 MG/1 ML VIAL IV PRN ×2 (11:42→14:35)
[2017-07-20] MEDS: NITROGLYCERIN DRIP 50 MG/250 ML BOTTLE IV SCH (15:50)
[2017-07-20] MEDS: MORPHINE 4 MG/1 ML VIAL IV PRN ×2 (16:26→20:02)
[2017-07-20] MEDS: ATORVASTATIN 40 MG TABLET PO SCH (20:02)
[2017-07-20] MEDS: IPRATROPIUM 500 MCG/2.5 ML NEB RESP TX SCH (21:13)
[2017-07-21] MEDS: IPRATROPIUM 500 MCG/2.5 ML NEB RESP TX SCH ×7 (00:06→23:50)
[2017-07-21] MEDS: MORPHINE 4 MG/1 ML VIAL IV PRN ×4 (00:18→14:17)
[2017-07-21 06:00] LABS: Basophils % 0.2 % (0.0-0.8); Hematocrit 27.9 VOL% (42.0-52.0); Immature Granulocytes % 0.7 %; Immature Granulocytes Absolute 0.14 #; Lymphocytes # 3.3 10*3/uL (1.4-4.0); Lymphocytes % 17.3 % (21.2-54.2); Mean Corpuscular HGB Conc 35.8 GM/DL (32-36); Mean Corpuscular Hemoglobin 31 PG (27-34); Mean Corpuscular Volume 86.1 FL (87-102); Monocytes # 1.5 10*3/uL (0.11-0.8); Monocytes % 7.8 % (1.7-12.7); NRBC # 0.02 10*3/uL; Neutrophils # 14.3 10*3/uL (1.4-7.4); Red Blood Count 3.24 MC/CUMM (3.8-5.5); White Blood Count 19.4 T/CUMM (4-12)
[2017-07-21 06:05] LABS: Platelet Count 92 T/CUMM (130-400)
[2017-07-21 06:23] LABS: Hypochromasia 1+
[2017-07-21 06:24] LABS: Microcytosis Slight; Ovalocytes Slight; Platelet Estimate Decreased
[2017-07-21 06:32] LABS: Calcium 8.2 MG/DL (8.5-10.1); Osmolality,Calculated 273.8 MOS/KG (273-304); Potassium 3.7 MMOL/L (3.5-5.1)
[2017-07-21] MEDS: SODIUM CHLORIDE 0.45% 1,000 ML IV SCH (07:07)
[2017-07-21] MEDS: FUROSEMIDE 40 MG TABLET PO SCH (08:27)
[2017-07-21] MEDS: ASPIRIN EC 325 MG TABLET PO SCH (08:27)
[2017-07-21] MEDS: amLODIPine 5 MG TABLET PO SCH (08:27)
[2017-07-21] MEDS: LOSARTAN 25 MG TABLET PO SCH ×2 (08:27→21:13)
[2017-07-21] MEDS: CHLORHEXIDINE 0.12% ORAL RINSE 60 ML BOTTLE SWISH/SPIT SCH ×2 (08:28→21:14)
[2017-07-21] MEDS: CARVEDILOL 6.25 MG TABLET PO SCH ×2 (08:28→21:13)
[2017-07-21] MEDS ORDERED: FUROSEMIDE 40 MG/4 ML VIAL IV ONE (09:54)
[2017-07-21] MEDS: MONTELUKAST CHEW 4 MG TABLET PO SCH (12:18)
[2017-07-21] MEDS: ATORVASTATIN 40 MG TABLET PO SCH (21:13)
[2017-07-21] MEDS: ZALEPLON 5 MG CAPSULE PO PRN (21:13)
[2017-07-22] MEDS: IPRATROPIUM 500 MCG/2.5 ML NEB RESP TX SCH ×6 (03:33→23:43)
[2017-07-22 05:28] LABS: Basophils % 0.2 % (0.0-0.8); Eosinophils % 0.2 % (0.00-10.9); Hematocrit 29.2 VOL% (42.0-52.0); Immature Granulocytes % 0.4 %; Immature Granulocytes Absolute 0.07 #; Lymphocytes # 3.7 10*3/uL (1.4-4.0); Lymphocytes % 21.7 % (21.2-54.2); Mean Corpuscular HGB Conc 34.2 GM/DL (32-36); Mean Corpuscular Hemoglobin 30 PG (27-34); Mean Corpuscular Volume 88.5 FL (87-102); Mean Platelet Volume 11.9 FL (9.6-12.0); Monocytes # 1.6 10*3/uL (0.11-0.8); Monocytes % 9.5 % (1.7-12.7); NRBC # 0.03 10*3/uL; Neutrophils # 11.5 10*3/uL (1.4-7.4); Platelet Count 119 T/CUMM (130-400); Red Cell Distribution Width 13.7 % (9.3-17.3); White Blood Count 16.8 T/CUMM (4-12)
[2017-07-22] MEDS: MORPHINE 4 MG/1 ML VIAL IV PRN (05:34)
[2017-07-22] MEDS: SODIUM CHLORIDE 0.45% 1,000 ML IV SCH (05:35)
[2017-07-22 05:38] LABS: Calcium 8.3 MG/DL (8.5-10.1); Osmolality,Calculated 275.7 MOS/KG (273-304); Potassium 3.4 MMOL/L (3.5-5.1)
[2017-07-22] MEDS: COLCHICINE 0.6 MG TABLET PO SCH ×2 (06:35→08:56)
[2017-07-22] MEDS: MONTELUKAST CHEW 4 MG TABLET PO SCH (08:27)
[2017-07-22] MEDS: ASPIRIN EC 325 MG TABLET PO SCH (08:27)
[2017-07-22] MEDS: LOSARTAN 25 MG TABLET PO SCH ×2 (08:27→21:01)
[2017-07-22] MEDS: CARVEDILOL 6.25 MG TABLET PO SCH (08:27)
[2017-07-22] MEDS: FUROSEMIDE 40 MG TABLET PO SCH (08:28)
[2017-07-22] MEDS: amLODIPine 5 MG TABLET PO SCH (08:28)
[2017-07-22] MEDS: CHLORHEXIDINE 0.12% ORAL RINSE 60 ML BOTTLE SWISH/SPIT SCH ×2 (08:29→21:01)
[2017-07-22] MEDS ORDERED: CARVEDILOL 12.5 MG TABLET PO SCH (08:43)
[2017-07-22] MEDS ORDERED: CARVEDILOL 6.25 MG TABLET PO ONE (08:58)
[2017-07-22] MEDS: DOCUSATE SODIUM 100 MG CAPSULE PO SCH (09:14)
[2017-07-22] MEDS: BISACODYL 5 MG TABLET PO SCH (09:14)
[2017-07-22] MEDS ORDERED: POTASSIUM CHLORIDE RIDER 20 MEQ in PREMIX 1 EACH IV PRN (09:53)
[2017-07-22] MEDS ORDERED: POTASSIUM CHLORIDE RIDER 10 MEQ in PREMIX 1 EACH IV PRN (09:53)
[2017-07-22] MEDS: ASCORBIC ACID 500 MG TABLET PO SCH ×2 (13:33→21:01)
[2017-07-22] MEDS: ALBUTEROL 2.5 MG/3 ML NEB RESP TX SCH ×2 (19:04→23:43)
[2017-07-22] MEDS: ZALEPLON 5 MG CAPSULE PO PRN (21:01)
[2017-07-22] MEDS: CARVEDILOL 12.5 MG TABLET PO SCH (21:01)
[2017-07-22] MEDS: ATORVASTATIN 40 MG TABLET PO SCH (21:01)
[2017-07-23] MEDS: IPRATROPIUM 500 MCG/2.5 ML NEB RESP TX SCH ×3 (02:55→10:07)
[2017-07-23] MEDS: ALBUTEROL 2.5 MG/3 ML NEB RESP TX SCH ×3 (02:55→10:07)
[2017-07-23 04:31] LABS: ABG Base Excess 5.1 MMOL/L (-2.5-2.5); ABG HCO3 28.9 MMOL/L (20-26); ABG Oxygen Saturation 95.9 % (95-100); ABG PCO2 36.3 MM HG (35-48); ABG PO2 74.8 MM HG (80-95); ABG TCO2 25.4 MMOL/L (23-27); Allen Test Positive
[2017-07-23 06:12] LABS: Basophils # 0.1 10*3/uL (0.0-0.2); Basophils % 0.3 % (0.0-0.8); Eosinophils # 0.2 10*3/uL (0.0-0.87); Eosinophils % 1.6 % (0.00-10.9); Hematocrit 32.6 VOL% (42.0-52.0); Hemoglobin 11.2 GM/DL (14.0-18.0); Immature Granulocytes % 0.5 %; Immature Granulocytes Absolute 0.07 #; Lymphocytes # 3.7 10*3/uL (1.4-4.0); Lymphocytes % 24.3 % (21.2-54.2); Mean Corpuscular HGB Conc 34.4 GM/DL (32-36); Mean Corpuscular Hemoglobin 30 PG (27-34); Mean Corpuscular Volume 87.9 FL (87-102); Mean Platelet Volume 11.3 FL (9.6-12.0); Monocytes # 1.4 10*3/uL (0.11-0.8); NRBC # 0.02 10*3/uL; Neutrophils # 9.8 10*3/uL (1.4-7.4); Neutrophils % 64.3 % (38.7-73.9); Platelet Count 174 T/CUMM (130-400); Red Blood Count 3.71 MC/CUMM (3.8-5.5); Red Cell Distribution Width 13.4 % (9.3-17.3); White Blood Count 15.3 T/CUMM (4-12)
[2017-07-23 06:41] LABS: Calcium 8.9 MG/DL (8.5-10.1); Osmolality,Calculated 277.5 MOS/KG (273-304); Potassium 3.4 MMOL/L (3.5-5.1)
[2017-07-23 07:50] VITALS: BP 143/94
[2017-07-23] MEDS: BISACODYL 5 MG TABLET PO SCH (08:23)
[2017-07-23] MEDS: FUROSEMIDE 40 MG TABLET PO SCH (08:24)
[2017-07-23] MEDS: DOCUSATE SODIUM 100 MG CAPSULE PO SCH (08:24)
[2017-07-23] MEDS: ASCORBIC ACID 500 MG TABLET PO SCH (08:24)
[2017-07-23] MEDS: amLODIPine 5 MG TABLET PO SCH (08:25)
[2017-07-23] MEDS: ASPIRIN EC 325 MG TABLET PO SCH (08:25)
[2017-07-23] MEDS: MONTELUKAST CHEW 4 MG TABLET PO SCH (08:25)
[2017-07-23] MEDS: LOSARTAN 25 MG TABLET PO SCH (08:25)
[2017-07-23] MEDS: COLCHICINE 0.6 MG TABLET PO SCH (08:25)
[2017-07-23] MEDS: CARVEDILOL 12.5 MG TABLET PO SCH (08:25)
[2017-07-23] MEDS: CHLORHEXIDINE 0.12% ORAL RINSE 60 ML BOTTLE SWISH/SPIT SCH (08:28)
== END 2017-07-23 12:31 | disposition home health service (06) | DRG 236 ==
LOC: N.SDSINP 07-18 05:22 → N.CVR 07-18 07:51 → N.ICU 07-19 13:28 → N.TELES 07-20 14:40
PROVIDERS: ADMIT Thoracic Surgery (Cardiothoracic Vascular Surgery); ATTEND Thoracic Surgery (Cardiothoracic Vascular Surgery)